=== PATIENT | male | born 1990 | race Two or more races ===

== ENCOUNTER 2019-06-05 00:16 | Emergency (ER) | payer BC ==
[~2019-06-05] VITALS: Ht 177.8 cm; Wt 84.0 kg
[2019-06-05 00:19] VITALS: BP 142/102
[2019-06-05] MEDS ORDERED: HYDROcodone/acetaminophen 10/325mg tab PO ONE (00:30)
[2019-06-05] MEDS ORDERED: NAPR-56 PO (00:33)
[2019-06-05] MEDS ORDERED: PENI250T2 PO (00:33)
== END 2019-06-05 00:40 | disposition home or self-care (01) ==
LOC: ER 00:17
DX: K08.89 Other specified disorders of teeth and supporting structures (principal); Z79.899 Other long term (current) drug therapy
CPT/HCPCS: 99283

== ENCOUNTER → 2020-12-12 | Emergency (ER) | payer BC ==
[~2020-12-12] VITALS: Ht 172.7 cm; Wt 79.5 kg
[2020-12-12 20:37] VITALS: BP 145/92
== END | disposition left against medical advice (07) ==
LOC: ER 20:35
DX: T18.128A Food in esophagus causing other injury, initial encounter (principal); X58.XXXA Exposure to other specified factors, initial encounter; Y93.89 Activity, other specified; Y92.89 Other specified places as the place of occurrence of the external cause; Y99.8 Other external cause status